=== PATIENT | male | born 1960 | race Caucasian/White ===

== ENCOUNTER → 2023-08-28 | Outpatient (CLI) | payer MEDICAID ==
[2023-08-28 15:47] LABS: INR 0.9 (<1.2); Partial Thromboplastin Time 23.9 sec (22.0-30.0); Prothrombin Time 9.9 sec (10.0-12.5)
[2023-08-28 19:51] LABS: ALT 21 U/L (10-49); AST 23 U/L (14-35); Albumin 4.7 g/dL (3.8-4.9); Albumin/Globulin Ratio 1.96 Ratio (1.60-3.17); Alkaline Phosphatase 94 U/L (41-126); BUN/Creat Ratio 21.36 Ratio (12.00-20.00); Blood Urea Nitrogen 23.5 mg/dL (9.0-27.0); Carbon Dioxide 26.3 mmol/L (21.6-31.8); Chloride 98 mmol/L (96-109); Globulin 2.4 g/dL (1.6-3.3); Glucose 109 mg/dL (70-110); Potassium 4.2 mmol/L (3.5-5.5); Sodium 139 mmol/L (135-145); Total Bilirubin 0.5 mg/dL (0.3-1.2); Total Protein 7.1 g/dL (6.2-8.2)
[2023-08-28 21:08] LABS: HCT 46.7 % (39.6-50.0); HGB 15.5 g/dL (13.0-17.0); MCH 31.6 pg (27.0-32.0); MCHC 33.2 g/dL (32.0-37.0); MCV 95.1 FL (80.0-97.0); Mean Platelet Volume 10.4 FL (9.5-12.2); NRBC Per 100 WBC 0 X 10*3/uL (0.00-0.01); Platelet Count 311 X 10*3/uL (140-440); RBC 4.91 X 10*6/uL (4.40-5.60); RDW 12.7 % (11.5-14.5); WBC 7.49 X 10*3/uL (4.50-10.00)
[2023-08-28 21:27] LABS: Appearance,Urine Clear (Clear); Bilirubin,Urine Negative (Negative); Blood,Urine Negative (Negative); Color,Urine Yellow (Yellow); Ketones,Urine Trace (Negative); Nitrite,Urine Negative (Negative); PH, Urine 6.5; Specific Gravity,Urine 1.023 (1.001-1.030)
[2023-08-28 21:36] LABS: Bacteria,Urine None Seen (None Seen)
== END | disposition home or self-care (01) ==
LOC: LABPAT 12:27
PROVIDERS: ATTEND Orthopaedic Surgery
DX: Z01.818 Encounter for other preprocedural examination (principal); M16.12 Unilateral primary osteoarthritis, left hip
CPT/HCPCS: 36415; 80053; 81001; 85027; 85610; 85730; 86850; 86900; 86901; 87070; 93005

== ENCOUNTER 2023-09-03 06:19 | Day surgery (SDC) | payer MEDICAID ==
[2023-08-29 11:02] VITALS: BMI 29.5
[~2023-09-03 06:19] MED LIST: ACETAMINOPHEN TAB 500 MG TAB PO PRN; GABAPENTIN 300 MG CAP PO PRN; MELOXICAM 7.5 MG TAB PO PRN; TRANEXAMIC 1,000 MG/100ML-NACL 1,000 MG in SALINE 1 100ML.BAG IVPB PRN
[2023-09-03] MEDS ORDERED: LACTATED RINGERS 1,000 ML IV ONE ×2 (07:18)
[2023-09-03] MEDS ORDERED: droPERidol 5 MG/2 ML VIAL IVP ONE (07:21)
[2023-09-03] MEDS ORDERED: HYDROmorphone 0.5 MG/0.5 ML SYRINGE IVP PRN ×4 (07:21→09:17)
[2023-09-03] MEDS ORDERED: LIDOCAINE 1% (10MG/ML) FOR IV START INTRADERMA PRN (07:21)
[2023-09-03] MEDS ORDERED: DEXAMETHASONE SOD PHOSPHATE 4 MG/ML 1 ML VIAL IV ONE (07:21)
[2023-09-03] MEDS ORDERED: ONDANSETRON 4 MG/2 ML VIAL ONE (07:44)
[2023-09-03] MEDS ORDERED: MIDAZOLAM 2 MG/2 ML VIAL IVP ONE (08:13)
[2023-09-03] MEDS ORDERED: NALOXONE 0.4 MG/ML 1 ML VIAL IV PRN (09:17)
[2023-09-03] MEDS ORDERED: MAGNESIUM HYDROXIDE 2,400 MG/30 ML CUP PO PRN (09:17)
[2023-09-03] MEDS ORDERED: ONDANSETRON 4 MG/2 ML VIAL IVP PRN (09:17)
[2023-09-03] MEDS ORDERED: MIDAZOLAM 2 MG/2 ML VIAL ONE (09:24)
[2023-09-03] MEDS ORDERED: DEXAMETHASONE SOD PHOSPHATE 4 MG/ML 1 ML VIAL ONE (09:24)
[2023-09-03] MEDS ORDERED: ROPIVACAINE 5 MG/ML 30 ML VIAL ONE (09:24)
[2023-09-03] MEDS ORDERED: PHENYLEPHRINE-0.9% NACL SYG 1,000 MCG/10 ML SYRINGE ONE (09:24)
[2023-09-03] MEDS ORDERED: PROPOFOL 10 MG/ML 20 ML VIAL IV ONE (09:24)
[2023-09-03] MEDS ORDERED: fentaNYL (PF) 50 MCG/ML 2 ML AMP ONE (09:24)
[2023-09-03] MEDS ORDERED: TRANEXAMIC 1,000 MG/100ML-NACL PREMIX BAG ONE (09:24)
[2023-09-03] MEDS ORDERED: ROPIVACAINE 5 MG/ML 30 ML VIAL MISCELLANE ONE ×2 (09:58→10:33)
[2023-09-03] MEDS ORDERED: ceFAZolin 1,000 MG in SODIUM CHLORIDE 0.9% 1,000 ML IRRIGATION ONE (10:00)
--- NOTE | 2023-09-03 10:40 | P.OP ---
Date of Procedure: 09/03/23 Preoperative Diagnosis: Severe osteoarthritis left hip Postoperative Diagnosis: Severe osteoarthritis left hip Procedure(s) Performed: Left total hip arthroplasty with a direct anterior approach Implants: [employer] Polarstem standard size 5 with a collar [employer] R3, 3 hole hemispherical acetabular shell, 58 mm [employer] Reflection 6.5 mm cancellus screw, 20 mm, 25 mm [employer] R3, XLPE 20 acetabular liner [employer] Oxinium femoral head 36 mm, +0 All components were press-fit. The articulation is Oxinium on polyethylene. Anesthesia: spinal Surgeon: Devon Lucas Heat Treater Helper #1: Erica Baez Estimated Blood Loss (ml): 200 Pathology: none sent Condition: stable Disposition: PACU Indications for Procedure: After failure of conservative treatment we discussed the surgical and nons urgical treatment options at length. Patient wishes to proceed with a total hip arthroplasty with a direct anterior approach. Complications specific to this procedure were discussed at length, including but not limited to infection, leg length discrepancy, dislocation, nerve injury, and fracture. Covid-19 was also discussed at length with the patient, and they are aware of the current policies and procedures. The patient was given the option of delaying surgery, but they elect to proceed knowing these risks. Patient is aware of all these complications and informed consent was obtained Operative Findings: The operative findings are consistent with severe osteoarthritis of the left hip Description of Procedure: The patient was seen and evaluated in the preoperative area and the consent was reviewed. The operative site was marked with a skin marker. The patient verified the procedure and operative site. A ALFREDO block was placed by anesthesia in the preoperative area. The patient was then brought to the operating room and given preoperative antibiotics intravenously. 1 g of Tranexamic acid was also given intravenously. A spinal anesthetic was administered by the anesthesia department. The patient was then placed on the [employer] table with the bony prominences well-padded. The hip area was then prepped with a ChloraPrep solution and draped in the usual sterile fashion. A universal timeout was then performed, which confirmed the patient's name, surgical site, ALLERGIES, and procedure being performed on the consent. Next the incision site was located at 1 cm distal and 4 cm lateral to the anterior superior iliac spine. The skin and subcutaneous tissues were sharply incised. Incision was carefully dissected down to the fascia overlying the tensor fascia corina muscle. This fascia was then incised in line with the muscle fibers. Care was taken to stay laterally in order to avoid injuring the lateral femoral cutaneous nerve. Next, using blunt finger dissection, the tensor fascia corina muscle was dissected off its investing fascia. The muscle was then carefully retracted laterally with a cobra retractor over the lateral neck of the femur. Next, the circumflex vessels were identified and cauterized using the Aquamantis device. The anterior hip capsule was then exposed. The capsule was then opened and an inverted T fashion. The retractors were then placed intracapsularly. The retractors were maintained intracapsular throughout the procedure. The proximal femur was then visualized. Fluoroscopic x-rays were then taken in order to evaluate the preoperative leg lengths. A small amount of traction was placed on the leg. The femoral neck was then osteotomized at the appropriate level above the lesser trochanter. A small wedge of bone was then removed from the remaining femoral head. Next, using a corkscrew the femoral head was removed from the acetabulum. On gross visual inspection, the femoral head had complete loss of articular cartilage and multiple periarticular osteophytes. The femoral head was then measured. Attention was then turned to the acetabulum. The acetabulum was exposed and any remaining labrum was excised. Sequential reaming of the acetabulum was performed using fluoroscopic guidance until there was a good bed of bleeding cancellus bone. When the appropriate size was reached, a trial was then placed. The position and fit of the trial was checked with fluoroscopy. The trial was then removed. Then, using fluoroscopic guidance, the final implant was impacted at 20 of anteversion and 40 of abduction, and fully seated in the acetabulum. 2 screws were then placed in the acetabulum. Again fluoroscopy was used to check position of the screws. Next, the liner was then impacted, with a 20 elevated liner located in the anterior superior quadrant. Component locking was confirmed. Attention was then directed to the femur. With the aid of the [employer] table, the femur was externally rotated to approximately 130, extended, and adducted under the opposite leg. A side hook was then placed under the proximal femur, and the side hook elevator was used to elevate the proximal femur while releasing the capsule. Retractors were then placed. A capsular release was performed, as well as a release of the conjoined tendon, which afforded excellent v isualization of the proximal femur. Next, a box osteotome was used to lateralize the proximal femur. A hat and cap parts cutter hand was then used to locate the femoral canal. Sequential broaching was then performed with appropriate size which afforded excellent fixation in the proximal femur. A trial was then placed with appropriate head and neck, and the hip was gently reduced with the aid of the [employer] table. Fluoroscopy was then used to check position of the components, as well as to evaluate the leg lengths and offset. The leg lengths and offset were measured as closely as possible to ensure stability of the hip. The hip was then gently dislocated and the trials were then removed. Final implants were then impacted and the hip was again reduced. Final fluoroscopic x-rays confirmed that the components were in anatomic position. The leg lengths and offset were measured and were found to coincide with the trial measurements. The hip was also taken through range of motion, and found to be stable. The hip was then copiously irrigated with antibiotic solution with pulsatile lavage. The hip was then irrigated with Irrisept solution. The soft tissues were then injected with a ropivacaine solution. A second dose of 1 g of Tranexamic acid was also given intravenously. The fascia was then closed with 2-0 strata fix suture. The subcutaneous tissue was closed with 3-0 Vicryl. The subcuticular tissue was closed with 3-0 strata fix suture. The skin was then closed with Exofin skin glue. After the glue and dried, and Optifoam silver impregnated dressing was applied. The patient was t hen transferred to the recovery room in stable condition. The assistant professor of religion CARL Carrasco was required due to the complexity of surgery, and the need for skilled surgical services coordinator for positioning, draping, exposure, retraction, and closure of the wound.
--- NOTE | 2023-09-03 12:07 | FL ---
Fluoroscopy INDICATION: Pain FINDINGS: Fluoroscopy time: 34 seconds. Total dose area product (DAP) in uGy*m?, mGy*cm? (or similar): 1.3191 Images obtained: 5. IMPRESSION: 1. Documentation of fluoroscopy.
--- NOTE | 2023-09-03 12:35 | XR ---
Fluoroscopy INDICATION: Pain FINDINGS: Fluoroscopy time: 34 seconds. Total dose area product (DAP) in uGy*m?, mGy*cm? (or similar): 1.3191 Images obtained: 0. IMPRESSION: 1. Documentation of fluoroscopy.
--- NOTE | 2023-09-03 13:30 | XR ---
EXAMINATION TYPE: XR Hip Limited LT DATE OF EXAM: 09/03/2023 COMPARISON: None HISTORY: Left hip replacement TECHNIQUE: AP left hip FINDINGS: Displacement of the femoral prosthesis with acetabular component. No acute fractures are ev ident. Postsurgical soft tissue changes are evident. IMPRESSION: 1. No acute fracture post left hip replacement
--- NOTE | 2023-09-03 13:51 | P.ANPRN ---
Procedure Note - Anesthesia - Nerve Block Performed Left Omid Single Time Out Performed: Yes Date of Procedure: 09/03/23 Procedure Start Time: :13 Procedure Stop Time: :19 Location of Patient: PreOp Indication: Acute Post-Operative Pain, Requested by Surgeon Sedation Type: Sedate with meaningful contact maintained Preparation: Sterile Prep Position: Supine Catheter: None Needle Gauge: 21 Ultrasound used to visualize needle placement: Yes Ultrasound used to observe medication spread: Yes Blood Aspirated: No Pain Paresthesia on Injection Noted: No Resistance on Injection: Normal Image Stored and Saved: Yes Events: Uneventful and Well Tolerated (Ropivacaine 0.5% 20 mL plus dexamethasone 4 mg)
[2023-09-03] MEDS ORDERED: HYDROcodone/APAP 7.5-325MG 1 EACH TAB PO PRN (15:33)
[2023-09-03] MEDS: LACTATED RINGERS 1,000 ML IV SCH (15:56)
[2023-09-03] MEDS: SODIUM CHLORIDE 0.9% 1,000 ML IV SCH (15:57)
--- NOTE | 2023-09-03 18:06 | P.CONS ---
History of Present Illness - Reason for Consult Consult date: 09/03/23 - History of Present Illness 63 year old M with PMH of HTN presents to [facility] for elective surgery. He underwent left total hip arthroplasty with a direct anterior approach with Dr. Shayy [facility] has been consulted for medical management of this patient. Patient reports no complaints. Well controlled hip pain. Urinating freely. No bowel movement nor passing gas. General: non toxic, no distress, appears at stated age Derm: warm, dry Head: atraumatic, normocephalic, symmetric Eyes: EOMI, no lid lag, anicteric sclera Cardiovascular: S1S2 reg, no murmur Lungs: CTA bilateral, no rhonchi, no rales , no accessory muscle use Ext: no gross muscle atrophy, no edema, no contractures Neuro: no focal neuro deficits Psych: Alert, oriented, appropriate affect Based on my assessment of this patient, this patient meets a moderate complexity level of care. Patient has a chronic diagnosis of HTN. HTN: Amlodipine 5 mg PO QHS. Sleep apnea: Outpatient sleep study. Monitor O2 sat. CODE STATUS: FULL CODE DVT Prophylaxis: ASA GI Prophylaxis: Designated medical POA if patient is not able to make medical decisions for themselves: I have reviewed the following consumer experience consultant notes: Operative and anesthesia note. I have reviewed the results of the following tests: I have ordered the following tests: Agree with CBC. I have discussed the care of this patient with the following independent istorian: I have independently interpreted the following test below: I have discussed the management of this patient with the following physician: Past Medical History Past Medical History: GERD/Reflux, Hypertension, Osteoarthritis (OA) Additional Past Medical History / Comment(s): past kidney stone, herniated disc with back pain ., pain left hip History of Any Multi-Drug Resistant Organisms: None Reported Past Surgical History: Adenoidectomy, Tonsillectomy Additional Past Surgical History / Comment(s): pain clinic procedures, Left total hip arthroplasty. Past Anesthesia/Blood Transfusion Reactions: No Reported Reaction Additional Past Anesthesia/Blood Transfusion Reaction / Comm: never had anes. Past Psychological History: No Psychological Hx Reported Smoking Status: Never smoker Past Alcohol Use History: Rare Past Drug Use History: None Reported - Past Family History Mother Family Medical History: Cancer Additional Family Medical History / Comment(s): BREAST & UTERINE CANCER Father Family Medical History: Cancer Additional Family Medical History / Comment(s): PROSTATE CANCER Medications and Allergies Home Medications Medication Instructions Recorded Confirmed Type Ibuprofen [Motrin Ib] 800 mg PO DIRECTED PRN 08/29/23 08/29/23 History amLODIPine [Norvasc] 5 mg PO HS 08/29/23 09/03/23 History traMADol HCL 50 - 100 mg PO Q6H PRN 08/29/23 09/03/23 History Aspirin 325 mg PO BID #60 tab 09/03/23 Rx HYDROcodone/APAP 7.5-325MG [Kimball 1 - 2 tab PO Q6H PRN #32 tab 09/03/23 Rx 7.5-325] Sennosides [Senokot] 2 tab PO DAILY PRN #60 tablet 09/03/23 Rx Allergies Allergy/AdvReac Type Severity Reaction Status Date / Time Penicillins Allergy Unknown Unknown Verified 09/03/23 07:16 Childhood Physical Exam Vitals: Vital Signs Temp Pulse Resp BP Pulse Ox 09/03/23 16:36 98.3 F 67 18 127/75 95 09/03/23 15:15 75 16 116/63 94 L 09/03/23 15:02 71 16 118/62 96 09/03/23 14:30 74 16 122/60 96 09/03/23 13:30 77 14 118/63 96 09/03/23 13:00 75 14 112/66 94 L 09/03/23 12:15 76 16 120/66 94 L 09/03/23 12:00 70 16 115/69 93 L 09/03/23 11:45 74 14 111/67 93 L 09/03/23 11:30 70 14 109/66 97 09/03/23 11:15 74 14 108/58 97 09/03/23 11:00 97.4 F L 80 14 109/57 97 09/03/23 08:26 89 16 128/77 94 L 09/03/23 07:18 97.9 F 90 16 161/87 97 Intake and Output 09/03/23 09/03/23 09/03/23 06:59 14:59 22:59 Intake Total 851 Output Total 200 Balance 651 Intake: IV 851 Output: Estimated Blood Loss 200 Other: # Voids 1 Weight 92.6 kg 92.6 kg
[2023-09-03] MEDS ORDERED: SENNOSIDES-DOCUSATE SODIUM 1 EACH TAB PO SCH (21:00)
[2023-09-03] MEDS ORDERED: amLODIPine 5 MG TAB PO SCH (21:00)
[2023-09-03] MEDS: HYDROcodone/APAP 7.5-325MG 1 EACH TAB PO PRN (21:54)
[2023-09-03] MEDS: ASPIRIN 325 MG TAB PO SCH (21:54)
[2023-09-04] MEDS: SODIUM CHLORIDE 0.9% 1,000 ML IV SCH (01:44)
[2023-09-04] MEDS: HYDROcodone/APAP 7.5-325MG 1 EACH TAB PO PRN ×2 (05:24→14:32)
[2023-09-04 08:41] LABS: Basophils # (A) 0.02 X 10*3/uL (0.00-0.10); Basophils % (A) 0.2 %; Eosinophils # (A) 0.02 X 10*3/uL (0.04-0.35); Eosinophils % (A) 0.2 %; HCT 38.3 % (39.6-50.0); HGB 12.9 g/dL (13.0-17.0); Lymphocytes # (A) 1.66 X 10*3/uL (0.90-5.00); Lymphocytes % (A) 12.5 %; MCH 31.7 pg (27.0-32.0); MCHC 33.7 g/dL (32.0-37.0); MCV 94.1 FL (80.0-97.0); Mean Platelet Volume 9.9 FL (9.5-12.2); Monocytes # (A) 1.49 X 10*3/uL (0.20-1.00); Monocytes % (A) 11.2 %; NRBC Per 100 WBC 0 X 10*3/uL (0.00-0.01); Neutrophils # (A) 10.03 X 10*3/uL (1.80-7.70); Neutrophils % (A) 75.5 %; Platelet Count 269 X 10*3/uL (140-440); RBC 4.07 X 10*6/uL (4.40-5.60); RDW 12.3 % (11.5-14.5); WBC 13.27 X 10*3/uL (4.50-10.00)
[2023-09-04 08:55] VITALS: BP 152/76; PULSE 85; RESP 16; TEMP 98.2
--- NOTE | 2023-09-04 10:19 | P.DS ---
Providers Expected date of discharge: 09/04/23 Attending physician: Devon Lucas Consults: 09/03/23 16:33 Consult Physician Routine Consulting Provider: Pj Mccoy Consult Reason/Comments: medical managment Do you want consulting provider notified?: Yes Primary care physician: Jeffery Lima MD - Discharge Diagnosis(es) (1) Osteoarthritis of left hip Current Visit: Yes Status: Acute (2) S/P total left hip arthroplasty Current Visit: Yes Status: Acute Hospital Course: This is a 63-year-old male with known history of degenerative arthritis of the left hip. The patient presented for evaluation as an outpatient. After discussion and consideration patient elects to proceed with total hip arthroplasty. The patient is seen preoperatively by Dr. Lucas and medically cleared for surgery by their primary care physician. Patient is admitted to [facility] on 09/03/2023 for total hip arthroplasty. The procedure is performed without complication or sequelae. The patient is doing well postoperatively. Labs and vital signs are stable on day of discharge. On day of discharge patient's hip incision is healing well. There is minimal erythema. There is no drainage noted at this time. There is minimal soft tissue swelling to the hip and thigh. Patient has full foot and ankle motion without difficulty or pain. Calf is soft and nontender to palpation. Neurovascular status to the left lower extremity is intact. Patient is discharged home in good condition. Please see [facility] rec for accurate list of home medications. Plan - Discharge Summary Discharge Rx Participant: No New Discharge Prescriptions: New Aspirin 325 mg PO BID #60 tab HYDROcodone/APAP 7.5-325MG [Alva 7.5-325] 1 - 2 tab PO Q6H PRN #32 tab PRN Reason: Pain Sennosides [Senokot] 2 tab PO DAILY PRN #60 tablet PRN Reason: Constipation Continue traMADol HCL 50 - 100 mg PO Q6H PRN PRN Reason: Pain amLODIPine [Norvasc] 5 mg PO HS Ibuprofen [Motrin Ib] 800 mg PO DIRECTED PRN PRN Reason: Pain Discharge Medication List Ibuprofen [Motrin Ib] 800 mg PO DIRECTED PRN 08/29/23 [History] amLODIPine [Norvasc] 5 mg PO HS 08/29/23 [History] traMADol HCL 50 - 100 mg PO Q6H PRN 08/29/23 [History] Aspirin 325 mg PO BID #60 tab 09/03/23 [Rx] HYDROcodone/APAP 7.5-325MG [Alva 7.5-325] 1 - 2 tab PO Q6H PRN #32 tab 09/03/23 [Rx] Sennosides [Senokot] 2 tab PO DAILY PRN #60 tablet 09/03/23 [Rx] Follow up Appointment(s)/Referral(s): [facility], [NON-STAFF] - 1-2 Days ([facility] will call you to schedule your in home physical therapy visits. ) Devon Lucas DO [Doctor of Osteopathic Medicine] - 2 Weeks Activity/Diet/Wound Care/Special Instructions: Weightbearing as tolerated with walker. Leave dressing intact. Dressing may be removed by home care nurse or by patient in 7 days. Then change dressing twice daily until follow up. May shower with initial dressing intact and after removal. If dressing become saturated, please remove. Please take aspirin 325mg twice daily for 30 days to prevent blood clots. Recommend use of compression stockings daily until follow up to help prevent swelling and blood clots. May remove at night before sleeping. Please follow-up with [facility] in 2 weeks and call with any questions or concerns, . Discharge Disposition: HOME WITH HOME HEALTH SERVICES
--- NOTE | 2023-09-04 11:01 | P.PN ---
Subjective Progress Note Date: 09/04/23 63 year old M with PMH of HTN presents to [facility] for elective surgery. He underwent left total hip arthroplasty with a direct anterior approach with Dr. Shayy [facility] has been consulted for medical management of this patient. Patient reports no complaints. Well controlled hip pain. Urinating freely. No bowel movement nor passing gas. 09/04 Patient was seen and examined. Vital signs stable. CBC WBC 13.27, Hg 12.9, Hct 38.3. General: non toxic, no distress, appears at stated age Derm: warm, dry Head: atraumatic, normocephalic, symmetric Eyes: EOMI, no lid lag, anicteric sclera Cardiovascular: Good distal perfusion in all 4 extremities. Lungs: Breathing comfortably, no accessory muscle use Ext: no gross muscle atrophy, no edema, no contractures Neuro: no focal neuro deficits Psych: Alert, oriented, appropriate affect Based on my assessment of this patient, this patient meets a moderate complexity level of care. Patient has a chronic diagnosis of HTN. HTN: Amlodipine 5 mg PO QHS. Sleep apnea: Outpatient sleep study. Monitor O2 sat. Medically stable for discharge. Med rec completed. CODE STATUS: FULL CODE DVT Prophylaxis: ASA GI Prophylaxis: Designated medical POA if patient is not able to make medical decisions for themselves: I have reviewed the following application development consultant notes: I have reviewed the results of the following tests: I have ordered the following tests: Pending: CBC. I have discussed the care of this patient with the following independent historian: I have independently interpreted the following test below: I have discussed the management of this patient with the following physician: Objective - Vital Signs Vital signs: Vital Signs Temp 98.7 F 09/04/23 02:25 Pulse 86 09/04/23 02:25 Resp 17 09/04/23 02:25 BP 129/66 09/04/23 02:25 Pulse Ox 96 09/04/23 02:25 FiO2 Intake & Output 09/03/23 09/04/23 09/04/23 18:59 06:59 18:59 Intake Total 851 Output Total 200 Balance 651 Weight 92.6 kg Intake: IV 851 Output: Estimated Blood Loss 200 Other: # Voids 1 4 - Labs CBC & Chem 7: 09/04/23 05:14
[2023-09-04] MEDS: ASPIRIN 325 MG TAB PO SCH (11:24)
[2023-09-04] MEDS: LACTATED RINGERS 1,000 ML IV SCH (11:25)
== END 2023-09-04 15:00 | disposition home health service (06) ==
LOC: OR 06:19 → EDSTATUS 07:00 → 4SSUR 10:54 → OR 09-04 15:00
PROVIDERS: ATTEND Orthopaedic Surgery
DX: M16.12 Unilateral primary osteoarthritis, left hip (principal); I10 Essential (primary) hypertension; G89.18 Other acute postprocedural pain; Z79.899 Other long term (current) drug therapy; Z88.0 Allergy status to penicillin
CPT/HCPCS: 27130; 97161; 97535; 97165; 64447; 85025; 73501; C1776; J2250; J1100; J0690 ×2; J2405; J2795; J1170